=== PATIENT | male | born 1960 | race Caucasian/White ===

== ENCOUNTER → 2023-11-06 14:14 | Outpatient (REF) | payer OTHER, SELFPAY | LOC: DHCBC MAIN 14:14 | PROVIDERS: ATTENDING PHYSICIAN Internal Medicine | DX: I25.5 Ischemic cardiomyopathy (principal); I25.10 Atherosclerotic heart disease of native coronary artery without angina pectoris; Z95.2 Presence of prosthetic heart valve | CPT/HCPCS: 93306 ==